=== PATIENT | female | born 1970 | race Caucasian/White ===

== ENCOUNTER → 2016-11-10 | Outpatient (CLI) | payer OTHER | LOC: VAS 16:34 | DX: M79.605 Pain in left leg (principal); R60.1 Generalized edema; G47.33 Obstructive sleep apnea (adult) (pediatric); R06.09 Other forms of dyspnea ==

== ENCOUNTER 2019-02-25 15:21 | Emergency (ER) | payer BC ==
[~2019-02-25] VITALS: Ht 170.2 cm; Wt 143.2 kg
[2019-02-25] MEDS ORDERED: VENLAFAXINE HCL75 M3 PO (15:59)
[2019-02-25] MEDS ORDERED: LASIX20 M1 PO (15:59)
[2019-02-25 16:29] LABS: EOS # 0.2 (0.04-0.40); EOS % 2.5 % (1.0-5.0); HEMATOCRIT 42.7 % (37.0-47.0); HEMOGLOBIN 13.9 g/dL (12.5-16.0); LYMPH# 3.2 (1.50-4.00); MEAN CELL VOLUME 87 fl (78-100); MEAN CORPUSCULAR HEMOGLOBIN 28 pg (27-31); MEAN CORPUSCULAR HGB CONC 33 g/dL (33-37); MEAN PLATELET VOLUME 11.4 fl (7.4-10.4); MONO # 0.8 (0.20-0.80); PLATELET COUNT 263 K/mm3 (130-400); RED BLOOD COUNT 4.91 M/mm3 (4.10-5.30); WHITE BLOOD COUNT 8.3 K/mm3 (4.8-10.8)
[2019-02-25 16:37] LABS: ALBUMIN 4.1 g/dL (3.5-5.0); POTASSIUM 3.6 mmol/L (3.5-5.1)
[2019-02-25 16:39] LABS: CALCIUM 9.2 mg/dL (8.3-10.5)
[2019-02-25 16:42] LABS: TOTAL BILIRUBIN 0.3 mg/dL (0.2-1.2)
[2019-02-25] MEDS ORDERED: LORAZEPAM0.5 M1 PO (20:47)
[2019-02-25 20:53] VITALS: BP 126/76
== END 2019-02-25 21:25 | disposition home or self-care (01) ==
LOC: ED 15:21
PROVIDERS: Family Medicine
DX: R06.4 Hyperventilation (principal); F41.0 Panic disorder [episodic paroxysmal anxiety]; F41.9 Anxiety disorder, unspecified; F32.9 Major depressive disorder, single episode, unspecified
CPT/HCPCS: J2060

== ENCOUNTER → 2019-04-05 | Outpatient (CLI) | payer BC ==
[~2019-04-05] MED LIST: LASIX20 M1 PO; LORAZEPAM0.5 M1 PO; VENLAFAXINE HCL75 M3 PO
== END ==
LOC: RAD 12:31
DX: N60.11 Diffuse cystic mastopathy of right breast (principal); N60.12 Diffuse cystic mastopathy of left breast

== ENCOUNTER → 2023-05-30 | Day surgery (SDC) | payer BC ==
[~2023-05-30] MED LIST changes: +Lidocaine PF 2% (20 MG/ML) 5 ML VIAL ONE
== END | disposition home or self-care (01) ==
LOC: MSO 12-20 12:00
DX: Z12.11 Encounter for screening for malignant neoplasm of colon (principal); D12.5 Benign neoplasm of sigmoid colon; D12.3 Benign neoplasm of transverse colon; K63.5 Polyp of colon; G47.33 Obstructive sleep apnea (adult) (pediatric)
CPT/HCPCS: 00812; J2704; J7120